=== PATIENT | male | born 1940 | race Caucasian/White ===

== ENCOUNTER → 2016-10-21 | Outpatient (CLI) | payer MEDICARE ==
[~2016-10-21] MED LIST: ASPIRIN EC81 MG PO; BRILINTA90 MG PO; CITRACAL+D(315M1 TAB PO; COUMADIN ** IA5 MG PO; CPAP; CYMBALTA60 MG PO; FENOFIBRATE145 MG PO; FISH OIL500 MG PO; GLUCOSAMINE CH1 EAC1 PO; IMDUR30 MG PO; LIPITOR20 M1 PO; MIRALAX17 GM PO; NEXIUM 24HR20 M1 PO; PREVACID15 MG PO; PRINIVIL (ZESTRI5 MG PO; PROBIOTIC1 EAC1 PO; THERAGRAN-M1 TAB PO; TOPROL XL25 MG PO; VITAMIN B-12500 MCG PO; VITAMIN D-32000 UNI1 PO
[2016-10-21 12:06] LABS: ANION GAP 15.1 (10.0-19.0); BLOOD UREA NITROGEN 17 mg/dL (6-24); CALCIUM 8.9 mg/dL (8.5-10.5); CHLORIDE 107 mMol/L (96-110); CO2 23 mMol/L (22-32); CREATININE 1.1 mg/dL (0.6-1.3); POTASSIUM 4.1 mMol/L (3.7-5.1); SODIUM 141 mMol/L (135-145)
[2016-10-21 12:09] LABS: ESTIMATED GFR (MDRD EQUATION) > 60
== END | disposition disaster alternative care site (69) ==
LOC: LNHI 11:53
PROVIDERS: Internal Medicine Interventional Cardiology
DX: I25.10 Atherosclerotic heart disease of native coronary artery without angina pectoris (principal)

== ENCOUNTER → 2017-01-02 | Outpatient (CLI) | payer MEDICARE | END | disposition disaster alternative care site (69) | LOC: GRAD 07:24 | DX: R26.89 Other abnormalities of gait and mobility (principal); I67.89 Other cerebrovascular disease; J34.89 Other specified disorders of nose and nasal sinuses; R42 Dizziness and giddiness; W19.XXXA Unspecified fall, initial encounter ==

== ENCOUNTER → 2017-01-28 | Outpatient (CLI) | payer MEDICARE | END | disposition disaster alternative care site (69) | LOC: GRAD 10:30 | DX: N17.9 Acute kidney failure, unspecified (principal); N18.9 Chronic kidney disease, unspecified; Q61.02 Congenital multiple renal cysts ==

== ENCOUNTER → 2017-04-04 | Outpatient (CLI) | payer MEDICARE ==
[2017-04-04 10:39] LABS: ALBUMIN 3.6 gm/dL (3.5-5.0); ANION GAP 11.2 (10.0-19.0); CALCIUM 9.3 mg/dL (8.5-10.5); CREATININE 1.3 mg/dL (0.6-1.3); POTASSIUM 4.2 mMol/L (3.7-5.1); TOTAL BILIRUBIN 0.5 mg/dL (0.0-1.5)
== END ==
LOC: LNHI 09:59
PROVIDERS: Internal Medicine Interventional Cardiology
DX: I25.5 Ischemic cardiomyopathy (principal)

== ENCOUNTER 2017-04-10 12:09 | Emergency (ER) | payer MEDICARE ==
--- NOTE | ~2017-04-10 | ER ---
PATIENT'S NAME: BERNADETTE KEBEDE [facility] AGE: 77 Y [address] ROOM: [place] [id number] LOCATION: [facility] ADMIT DATE: 04/10/2017 ER/Outpatient Report DISCHARGE DATE: 04/10/2017 FAMILY PHYSICIAN: Yan Bailey MD ATTENDING PHYSICIAN: Aden Harvey Time of Arrival: 1209 hours. Time of Evaluation: 1215 hours. CHIEF COMPLAINT: Facial injuries from fall. HISTORY OF PRESENT ILLNESS: This is a 77-year-old male, who presents to the ER. He states he fell prior to arrival. The patient states that he has been falling a lot lately, and he has been worked up for the reasons why. He states that he has seen a powder shoveler as well as a neurologist for this, and it has been going on for approximately 3 years, more recently last year and a half. He states that he gets a sensation of feeling slightly lightheaded before it will happen. He states he has been also walking with a cane that helps steady his gait. He states today he was on the out side, and he fell striking his face on the cement. He states he did not get knocked out. He denies any neck or back pain. He has had no nausea or vomiting. He did break his glasses across the bridge of his nose. He denies any extremity pain. No chest pain. No shortness of breath. He states he has had no recent illness. No fever or chills. He states the last time he fell in the past when he was evaluated; it was found that he needed to have a cardiac stent at that time. He was recently evaluated by his powder shoveler on Friday. He denies any other problems at this time. He states he does not know when his last tetanus shot was. ALLERGIES: DEMEROL, MORPHINE. MEDICATIONS: Please see medication list in nurse's notes. PAST MEDICAL HISTORY: 1. Frequent falls. 2. Coronary artery disease. 3. History of cardiac bypass with stent. 4. Low back surgery. 5. Neck surgery. 6. Left shoulder surgery. 7. Knee surgery. PATIENT'S NAME: BERNADETTE KEBEDE [facility] AGE: 77 Y [address] ROOM: [place] [id number] LOCATION: [facility] ADMIT DATE: 04/10/2017 ER/Outpatient Report DISCHARGE DATE: 04/10/2017 FAMILY PHYSICIAN: Yan Bailey MD ATTENDING PHYSICIAN: Aden Harvey SOCIAL HISTORY: Denies smoking, drug, or alcohol use. REVIEW OF SYSTEMS: All systems reviewed and negative with the exception of those discussed in the HPI. PHYSICAL EXAMINATION: VITAL SIGNS: Weight 88 kg taken, blood pressure is 139/78, pulse 80, respirations 20, temperature 97.8 degrees tympanically, and saturations 96% on room air. Forrest Coma Score is 15. GENERAL: An alert, calm, well-developed male, in mild distress. HEENT: Head: Normocephalic. Eyes: Pupils are equal and reactive to light. Ears: TMs display good light reflexes bilaterally. Nose: Turbinates pink. He does have some blood noted in each naris. Throat: No exudates or erythema. He does display moist mucous membranes. NECK: Supple. No lymphadenopathy. LUNGS: Clear to auscultation bilaterally. No wheezes or crackles. HEART: Regular rate and rhythm. ABDOMEN: Soft, nontender. He has good bowel sounds throughout. EXTREMITIES: No clubbing or cyanosis. He has full range of motion of all limbs. SKIN: He has multiple abrasions noted to his forehead and nose from fall. He has some bruising as well to the bridge of the nose. LABORATORY DATA AND X-RAYS: CBC: White count is 7.1, hemoglobin is 14.8, platelets 234, ANC is 5.1. CMS: Sodium is 139, potassium is 4.4, BUN 20, creatinine is 1.6, and GFR is 41. Magnesium is 2.3. CPK is 209, CK-MB is 2.9, troponin I is less than 0.040. Two-hour [id number]; CPK is 194, CK-MB is 2.5, troponin I is less than 0.040. Initial EKG has some misplaced leads. We did repeat the EKG, and he does have some descriptive EKG changes in aVL, III, and aVF. Chest x-ray was negative for any infiltrate. IMPRESSION: 1. Facial abrasions from ground level fall. 2. Near-syncope. ASSESSMENT AND PLAN: Discussed the patient's care with Dr. Harvey. Dr. Harvey also evaluated the patient. We did monitor the patient, and the patient remained comfortable his PATIENT'S NAME: BERNADETTE KEBEDE [facility] AGE: 77 Y [address] ROOM: [place], [place] [address] LOCATION: [facility] ADMIT DATE: 04/10/2017 ER/Outpatient Report DISCHARGE DATE: 04/10/2017 FAMILY PHYSICIAN: Yan Bailey MD ATTENDING PHYSICIAN: Aden Harvey entire stay. Dr. Harvey did speak with Dr. Mckeon regarding the patient's EKG, and he would like the patient to be placed on a 30-day event monitor. The patient did have that applied. He will be dismissed to home. He needs to monitor his symptoms closely. He should follow up here in the emergency room if any symptoms worsen. Otherwise, he needs to follow up with his primary care physician in the next week or sooner. The patient understands and agrees with care. BRIDGER TODD PA-C FOR MD MARCUS SNEED/marie /[id number] I have personally evaluated this patient, I have reviewed the case and agree with the plan as above. Aden Harvey MD d: 04/10/17 2143 t: 04/22/17 0634, OUTPATIENT REPORT
[2017-04-10 12:58] LABS: BASOPHIL # 0.1 K/uL (0.0-0.2); BASOPHIL % 0.7 %; EOSINOPHIL # 0.1 K/uL (0.0-0.5); EOSINOPHIL % 1.6 %; HEMATOCRIT 42.3 % (37.0-53.0); HEMOGLOBIN 14.8 g/dL (11.0-16.0); IMMATURE GRANULOCYTE % 0.1 %; LYMPHOCYTE % 14.2 %; MCV 91.4 fl (83.0-98.0); MONOCYTE # 0.8 K/uL (0.0-1.0); MONOCYTE % 11.8 %; MPV 9.8 fl (9.4-12.4); NEUTROPHIL # (ANC) 5.1 K/uL (1.4-9.0); NEUTROPHIL % 71.6 %; NRBC % 0 /100WBC (0-0.00); PLATELET COUNT 234 K/uL (150-450); RBC 4.63 M/uL (3.50-5.50); RDW-CV 12.6 % (11.9-14.6); WBC 7.1 K/uL (4.0-11.0)
[2017-04-10 13:06] LABS: INR - (THERAPEUTIC) 1.01 (0.92-1.07); PROTIME 10.6 SECONDS (9.8-11.4); PTT 26 SECONDS (25-32)
[2017-04-10 13:18] LABS: ALBUMIN 3.7 gm/dL (3.5-5.0); ALK PHOS 46 IU/L (33-138); ALT 39 IU/L (12-78); ANION GAP 10.4 (10.0-19.0); AST 31 IU/L (10-40); BLOOD UREA NITROGEN 20 mg/dL (6-24); CHLORIDE 106 mMol/L (96-110); CO2 27 mMol/L (22-32); CPK 209 IU/L (35-332); CREATININE 1.6 mg/dL (0.6-1.3); MAGNESIUM 2.3 mg/dL (1.8-2.6); POTASSIUM 4.4 mMol/L (3.7-5.1); SODIUM 139 mMol/L (135-145); TOTAL BILIRUBIN 0.6 mg/dL (0.0-1.5); TOTAL PROTEIN 7.3 g/dL (6.0-8.4)
[2017-04-10 15:21] LABS: CPK 194 IU/L (35-332)
== END 2017-04-10 15:29 | disposition disaster alternative care site (69) ==
LOC: GACC 12:09
PROVIDERS: Physician Assistant Medical
DX: S00.81XA Abrasion of other part of head, initial encounter (principal); R55 Syncope and collapse; I25.10 Atherosclerotic heart disease of native coronary artery without angina pectoris; Z88.5 Allergy status to narcotic agent; Z98.890 Other specified postprocedural states; Z95.1 Presence of aortocoronary bypass graft; W18.09XA Striking against other object with subsequent fall, initial encounter